=== PATIENT | male | born 1950 ===

== ENCOUNTER 2017-08-23 08:31 | Emergency (ER) | payer MEDICAID, MEDICARE ==
[2017-08-23 08:47] VITALS: BP 108/72; PULSE 80; RESP 18; TEMP 97.9; O2SAT 99
[2017-08-23] MEDS ORDERED: Sodium Chloride 0.9% 1,000 ML IV STA (09:08)
--- NOTE | 2017-08-23 09:12 | ED PDOC ---
HPI: Abdomen Time Seen by Provider: 08/23/17 09:04 Chief Complaint (Nursing): Abdominal Pain History Per: Patient Onset/Duration Of Symptoms: Days (5) Current Symptoms Are (Timing): Still Present Context: Food Severity: Mild Pain Scale Rating Of: 3 Location Of Pain/Discomfort: Epigastric Quality Of Discomfort: Sharp Associated Symptoms: denies: Fever, Nausea, Vomiting, Diarrhea Exacerbating Factors: None Alleviating Factors: None Additional Complaint(s): Epigastric abd pain x 5 days. Worse with food. No NVD. No fever. Past Medical History Vital Signs: Last Vital Signs Temp 97.9 F 08/23/17 08:44 Pulse 80 08/23/17 08:44 Resp 18 08/23/17 08:44 BP 108/72 08/23/17 08:44 Pulse Ox 99 08/23/17 09:12 - Medical History PMH: Diabetes, HTN, Hypercholesterolemia Denies: Chronic Kidney Disease - Family History Family History: States: Unknown Family Hx - Immunization History Hx Tetanus Toxoid Vaccination: No Hx Influenza Vaccination: Yes Hx Pneumococcal Vaccination: No - Home Medications Home Medications: Ambulatory Orders Medication Instructions Recorded Gemfibrozil 600 mg PO BID 08/02/14 SITagliptin [Januvia] 100 mg PO DAILY 08/02/14 Glimepiride [Amaryl] 4 mg PO BID 06/21/16 Lisinopril/Hydrochlorothiazide 1 tab PO DAILY 06/21/16 [Lisinopril-Hctz 20-25 mg Tab] Lovastatin 40 mg PO DAILY 06/21/16 Pantoprazole Sodium [Protonix] 40 mg PO DAILY 06/21/16 Ciprofloxacin HCl [Cipro] 500 mg PO BID #0 tablet 06/26/16 Lactobacillus Acidophilus [Bacid 1 cap PO BID #0 cap 06/26/16 Acidophilus] Metronidazole [Flagyl] 500 mg PO Q8 #0 tablet 06/26/16 Bismuth Subsalicylate [Pepto 1 - 2 tab PO Q4H PRN #50 ctb 07/15/16 Bismol] Loperamide [Imodium] 2 mg PO ONCE PRN #6 cap 07/19/16 Famotidine [Pepcid] 20 mg PO Q12 #20 tab 08/23/17 - Allergies Allergies/Adverse Reactions: Allergies Allergy/AdvReac Type Severity Reaction Status Date / Time No Known Allergies Allergy Verified 06/21/16 11:28 Review of Systems Constitutional: Negative for: Fever Gastrointestinal: Positive for: Abdominal Pain. Negative for: Nausea, Vomiting , Diarrhea Genitourinary Male: Negative for: Dysuria, Frequency Musculoskeletal: Negative for: Back Pain Physical Exam - Physical Exam Appears: Positive for: Non-toxic, No Acute Distress Gastrointestinal/Abdominal: Positive for: Bowel Sounds, Soft, Tenderness ( Epigastric) Back: Negative for: L CVA Tenderness, R CVA Tenderness Extremity: Positive for: Normal ROM Neurologic/Psych: Positive for: Alert, Oriented - Laboratory Results Result Diagrams: 08/23/17 09:25 08/23/17 09:25 - ECG O2 Sat by Pulse Oximetry: 99 Disposition - Clinical Impression Clinical Impression: Gastritis - Patient ED Disposition Is Patient to be Admitted: No Counseled Patient/Family Regarding: Studies Performed, Diagnosis, Need For Followup, Rx Given - Disposition Referrals: [facility] [Outside] Disposition: Routine/Home Disposition Time: 10:41 Condition: FAIR Prescriptions: Famotidine [Pepcid] 20 mg PO Q12 #20 tab Instructions: Gastritis (ED) Forms: [employer] (Bulgarian)
[2017-08-23 09:40] LABS: BASO # 0.1 K/uL (0.0-0.2); EOS # 0.3 K/uL (0.0-0.7); EOS % 4.1 % (0.0-4.0); HEMATOCRIT 43.8 % (35.0-51.0); LYMPH # 1.5 K/uL (1.0-4.3); MEAN CELL VOLUME 89.8 fl (80.0-94.0); MEAN CORPUSCULAR HGB CONC 34.6 g/dL (33.0-37.0); MEAN PLATELET VOLUME 9.4 fl (7.2-11.7); MONO # 0.5 K/uL (0.0-0.8); MONO % 7.3 % (0.0-10.0); NEUT % 63.6 % (50.0-75.0); NRBC % 0.1 % (0.0-0.0); RED CELL DISTRIBUTION WIDTH 13.2 % (11.5-14.5); WHITE BLOOD COUNT 6.2 K/uL (4.8-10.8)
[2017-08-23 09:48] LABS: ALB/GLOB RATIO 1.5 (1.0-2.1); ALKALINE PHOSPHATASE 64 U/L (38-126); ALT/SGPT 42 U/L (21-72); AST/SGOT 19 U/L (17-59); BILIRUBIN,TOTAL 0.7 mg/dl (0.2-1.3); BLOOD UREA NITROGEN 15 mg/dl (9-20); CALCIUM 9.1 mg/dL (8.4-10.2); CARBON DIOXIDE 27 mmol/L (22-30); CHLORIDE 101 mmol/L (98-107); GFR AFRICAN-AMERICAN > 60; GLUCOSE,RANDOM 169 mg/dL (75-110); LIPASE 188 U/L (23-300); POTASSIUM 4.2 MMOL/L (3.6-5.0); SODIUM 136 mmol/l (132-148); TOTAL PROTEIN 7.1 G/DL (6.3-8.2)
== END 2017-08-23 10:50 | disposition home or self-care (01) ==
LOC: H.ER 08:31
DX: K29.70 Gastritis, unspecified, without bleeding (principal); E11.9 Type 2 diabetes mellitus without complications; E78.00 Pure hypercholesterolemia, unspecified; I10 Essential (primary) hypertension
CPT/HCPCS: 80053; 83690; 85025; 96374; 99282; J7040

== ENCOUNTER 2018-01-14 10:08 | Emergency (ER) | payer MEDICARE, MEDICAID ==
[2018-01-14 10:19] VITALS: TEMP 97; O2SAT 98
--- NOTE | 2018-01-14 10:51 | ED PDOC ---
Upper Extremity Pain/Injury Time Seen by Provider: 01/14/18 10:36 Chief Complaint (Nursing): Upper Extremity Problem/Injury Chief Complaint (Provider): neck pain, shoulder pain History Per: Patient Additional Complaint(s): 67-year-old male presents with neck pain and bilateral shoulder pain for 2 weeks. He denies trauma or injury. Pain is worse with movement, better with rest. Patient took Tylenol last week which did not help. No other meds were taken for pain relief. Patient states pain does not radiate into her upper extremities past his shoulders. No associated chest pain, shortness of breath or dyspnea on exertion. PMD: Dr. Tiki Diego Past Medical History Reviewed: Historical Data, Nursing Documentation, Vital Signs Vital Signs: Last Vital Signs Temp 97 F L 01/14/18 10:17 Pulse 80 01/14/18 10:17 Resp 20 01/14/18 10:17 BP 121/80 01/14/18 10:17 Pulse Ox 98 01/14/18 10:17 - Medical History PMH: Diabetes, HTN, Hypercholesterolemia - Family History Family History: States: No Known Family Hx - Living Arrangements Living Arrangements: With Family - Social History Current smoker - smoking cessation education provided: No Alcohol: None Drugs: Denies - Home Medications Home Medications: Ambulatory Orders Medication Instructions Recorded Gemfibrozil 600 mg PO BID 08/02/14 SITagliptin [Januvia] 100 mg PO DAILY 08/02/14 Glimepiride [Amaryl] 4 mg PO BID 06/21/16 Lisinopril/Hydrochlorothiazide 1 tab PO DAILY 06/21/16 [Lisinopril-Hctz 20-25 mg Tab] Lovastatin 40 mg PO DAILY 06/21/16 Pantoprazole Sodium [Protonix] 40 mg PO DAILY 06/21/16 Ciprofloxacin HCl [Cipro] 500 mg PO BID #0 tablet 06/26/16 Lactobacillus Acidophilus [Bacid 1 cap PO BID #0 cap 06/26/16 Acidophilus] Metronidazole [Flagyl] 500 mg PO Q8 #0 tablet 06/26/16 Bismuth Subsalicylate [Pepto 1 - 2 tab PO Q4H PRN #50 ctb 07/15/16 Bismol] Loperamide [Imodium] 2 mg PO ONCE PRN #6 cap 07/19/16 Famotidine [Pepcid] 20 mg PO Q12 #20 tab 08/23/17 Cyclobenzaprine [Cyclobenzaprine 10 mg PO TID PRN #20 tab 01/14/18 HCl] Naproxen [Naprosyn] 500 mg PO BID #20 tab 01/14/18 traMADol [Ultram] 50 mg PO TID PRN #15 tab 01/14/18 - Allergies Allergies/Adverse Reactions: Allergies Allergy/AdvReac Type Severity Reaction Status Date / Time No Known Allergies Allergy Verified 06/21/16 11:28 Review of Systems ROS Statement: Except As Marked, All Systems Reviewed And Found Negative Constitutional: Negative for: Fever, Chills Eyes: Negative for: Vision Change Cardiovascular: Negative for: Chest Pain Respiratory: Negative for: Cough Gastrointestinal: Negative for: Nausea, Vomiting Musculoskeletal: Positive for: Neck Pain, Shoulder Pain (b/l), Other (denies fall or trauma) Neurological: Negative for: Weakness, Numbness, Headache, Dizziness Physical Exam - Reviewed Nursing Documentation Reviewed: Yes Vital Signs Reviewed: Yes - Physical Exam Appears: Positive for: Well, Non-toxic, No Acute Distress Skin: Negative for: Rash Eye Exam: Positive for: Normal appearance Neck: Positive for: Pain On Movement Of Neck (Diffuse tenderness to bilateral paraspinal regions along cervical spine, full range of motion noted with pain, no midline tenderness or step-off) Cardiovascular/Chest: Positive for: Regular Rate, Rhythm Respiratory: Positive for: Normal Breath Sounds Extremity: Positive for: Other (Tenderness to bilateral shoulders with full range of motion, 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 Negative for: Motor/Sensory Deficits, Aphasia, Facial Droop - ECG O2 Sat by Pulse Oximetry: 98 Pulse Ox Interpretation: Normal - Other Rad Cervical spine x-ray X-Ray: Interpreted by Me, Viewed By Me X-Ray Interpretation: no fx, no dis Right and Left shoulder x-rays X-Ray: Interpreted by Me, Viewed By Me X-Ray Interpretation: no fx, no dis; L - calficic tendinitis, R- degenerative changes Medical Decision Making Medical Decision Makin67 year old with neck pain and bilateral shoulder pain Plan: X-ray cervical spine, right and left shoulder IM toradol PO flexeril and tylenol Patient reports improvement pain after meds given in ED. He is aware of all diagnostic testing results, all questions answered. Prescriptions given for Naprosyn, Flexeril and tramadol. Patient was referred to orthopedist monitoring analyst for follow up. Disposition - Clinical Impression Clinical Impression: Neck pain, Calcific tendinitis - Patient ED Disposition Is Patient to be Admitted: No Counseled Patient/Family Regarding: Studies Performed, Diagnosis, Need For Followup, Rx Given - Disposition Referrals: Darleen Diego MD [Family Provider] - Chino Hoyos MD [Staff Provider] - Disposition: Routine/Home Disposition Time: 11:59 Condition: STABLE Additional Instructions: Rest affected area and avoid heavy lifting. Take prescription meds as directed as needed for pain. Follow-up with primary doctor or orthopedist for further evaluation. Prescriptions: Cyclobenzaprine [Cyclobenzaprine HCl] 10 mg PO TID PRN #20 tab PRN Reason: Muscle Spasm Naproxen [Naprosyn] 500 mg PO BID #20 tab traMADol [Ultram] 50 mg PO TID PRN #15 tab PRN Reason: Pain, Moderate (4-7) Instructions: Generalized Neck Pain, Calcific Tendonitis of the Shoulder (DC) Forms: [facility] ED School/Work Excuse Print Language: HEBREW
--- NOTE | 2018-01-14 11:49 | RAD ---
PROCEDURE: Radiographs of the Left Shoulder HISTORY: pain COMPARISON: No prior. FINDINGS: BONES: Normal. No fracture. JOINTS: Normal glenohumeral articulation. Calcific tendinitis. Mild acromioclavicular degenerative arthritis. SOFT TISSUES: Normal. OTHER FINDINGS: None. IMPRESSION: Calcific tendinitis. Mild acromioclavicular degenerative arthritis.
--- NOTE | 2018-01-14 11:49 | RAD ---
PROCEDURE: Radiographs of the Right Shoulder HISTORY: pain COMPARISON: No prior. FINDINGS: BONES: Normal. No fracture. JOINTS: Normal glenohumeral articulation. Mild acromioclavicular degenerative arthritis. Calcific tendinitis is noted. SOFT TISSUES: Normal. OTHER FINDINGS: None. IMPRESSION: Calcific tendinitis. Mild acromioclavicular degenerative arthritis.
--- NOTE | 2018-01-14 11:50 | RAD ---
PROCEDURE: Cervical Spine Radiographs. HISTORY: Pain. COMPARISON: None. FINDINGS: BONES: Alignment maintained. No fracture. Dens Intact. Evaluation of odontoid process and atlantoaxial articulation is limited. DISC SPACES: Normal. SOFT TISSUES: Normal. No prevertebral soft tissue swelling. OTHER FINDINGS: None. IMPRESSION: Normal limited examination.
[2018-01-14 12:07] VITALS: BP 120/70; PULSE 78; RESP 19
== END 2018-01-14 12:26 | disposition home or self-care (01) ==
LOC: H.ER 10:08
DX: M54.2 Cervicalgia (principal); M75.32 Calcific tendinitis of left shoulder; M75.31 Calcific tendinitis of right shoulder; E11.9 Type 2 diabetes mellitus without complications; E78.00 Pure hypercholesterolemia, unspecified; I10 Essential (primary) hypertension; M19.012 Primary osteoarthritis, left shoulder; Z79.84 Long term (current) use of oral hypoglycemic drugs
CPT/HCPCS: 72040; 73030; 96372; 99283; J1885

== ENCOUNTER 2018-03-29 05:29 | Emergency (ER) | payer MEDICARE, MEDICAID ==
[2018-03-29 05:51] VITALS: O2SAT 98
[2018-03-29] MEDS ORDERED: Sodium Chloride 0.9% 1,000 ML IV STA (05:53)
--- NOTE | 2018-03-29 06:03 | ED PDOC ---
HPI: CCC, URI, Sore Throat Time Seen by Provider: 03/29/18 05:45 Chief Complaint (Nursing): ENT Problem Chief Complaint (Provider): ENT Problem History Per: Patient History/Exam Limitations: no limitations Have you had recent travel within the past 21 days to any of the following countries: [place], [place], [place] or [place]?: Yes Other Location:: [place] Onset/Duration Of Symptoms: Days (X5) Current Symptoms Are (Timing): Still Present Location Of Pain: Ear(s) (RIGHT), Throat Additional Complaint(s): 67 y/o male with a PMHx of diabetes presents to the ED with complaints of a sore throat associated with right ear pain and difficulty swallowing, onset 5 days ago. Patient states pain begins in the throat and then radiates to the right ear. Patient reports of taking over the counter medications with no relief. Additionally, Patient reports he recently traveled to [place]. Denies fever. PMD: Dr. Darleen Diego Past Medical History Reviewed: Historical Data, Nursing Documentation, Vital Signs Vital Signs: Last Vital Signs Temp 97.9 F 03/29/18 05:48 Pulse 84 03/29/18 05:48 Resp 16 03/29/18 05:48 BP 110/76 03/29/18 05:48 Pulse Ox 98 03/29/18 06:07 - Medical History PMH: Diabetes, HTN, Hypercholesterolemia Denies: Chronic Kidney Disease - Surgical History Surgical History: No Surg Hx - Family History Family History: States: Unknown Family Hx - Social History Current smoker - smoking cessation education provided: No Alcohol: None Drugs: Denies - Immunization History Hx Tetanus Toxoid Vaccination: No Hx Influenza Vaccination: Yes Hx Pneumococcal Vaccination: No - Home Medications Home Medications: Ambulatory Orders Medication Instructions Recorded Gemfibrozil 600 mg PO BID 08/02/14 SITagliptin [Januvia] 100 mg PO DAILY 08/02/14 Glimepiride [Amaryl] 4 mg PO BID 06/21/16 Lisinopril/Hydrochlorothiazide 1 tab PO DAILY 06/21/16 [Lisinopril-Hctz 20-25 mg Tab] Lovastatin 40 mg PO DAILY 06/21/16 Pantoprazole Sodium [Protonix] 40 mg PO DAILY 06/21/16 Ciprofloxacin HCl [Cipro] 500 mg PO BID #0 tablet 06/26/16 Lactobacillus Acidophilus [Bacid 1 cap PO BID #0 cap 06/26/16 Acidophilus] Metronidazole [Flagyl] 500 mg PO Q8 #0 tablet 06/26/16 Bismuth Subsalicylate [Pepto 1 - 2 tab PO Q4H PRN #50 ctb 07/15/16 Bismol] Loperamide [Imodium] 2 mg PO ONCE PRN #6 cap 07/19/16 Famotidine [Pepcid] 20 mg PO Q12 #20 tab 08/23/17 Cyclobenzaprine [Cyclobenzaprine 10 mg PO TID PRN #20 tab 01/14/18 HCl] Naproxen [Naprosyn] 500 mg PO BID #20 tab 01/14/18 traMADol [Ultram] 50 mg PO TID PRN #15 tab 01/14/18 Amoxicillin/Clavulanate [Augmentin 1 tab PO BID #14 tab 03/29/18 875 MG-125 MG] - Allergies Allergies/Adverse Reactions: Allergies Allergy/AdvReac Type Severity Reaction Status Date / Time No Known Allergies Allergy Verified 06/21/16 11:28 Review of Systems ROS Statement: Except As Marked, All Systems Reviewed And Found Negative Constitutional: Negative for: Fever ENT: Positive for: Ear Pain (right), Throat Pain, Other (difficulty swallowing) Physical Exam - Reviewed Nursing Documentation Reviewed: Yes Vital Signs Reviewed: Yes - Physical Exam Appears: Positive for: No Acute Distress Head Exam: Positive for: ATRAUMATIC, NORMOCEPHALIC Skin: Positive for: Normal Color, Warm, Dry Eye Exam: Positive for: Normal appearance, EOMI, PERRL ENT: Positive for: Normal ENT Inspection, Pharyngeal Erythema. Negative for: Tonsillar Exudate Neck: Positive for: Normal, Painless ROM Cardiovascular/Chest: Positive for: Regular Rate, Rhythm. Negative for: Murmur Respiratory: Positive for: Normal Breath Sounds. Negative for: Respiratory Distress Gastrointestinal/Abdominal: Positive for: Normal Exam, Soft. Negative for: Tenderness Back: Positive for: Normal Inspection Extremity: Positive for: Normal ROM. Negative for: Pedal Edema, Deformity Neurologic/Psych: Positive for: Alert, Oriented. Negative for: Motor/Sensory Deficits - Laboratory Results Result Diagrams: 03/29/18 06:10 03/29/18 06:10 - ECG O2 Sat by Pulse Oximetry: 98 (RA) Pulse Ox Interpretation: Normal Medical Decision Making Medical Decision Making: Time: 05 Impression: 67 year old male with acute pharyngitis Plan: -- BMP -- CBC with differentials -- Sodium Chloride IV 1000 mls/hr -- SOLU-Medrol 125 mg IVP -- Toradol 15 mg IV -- Heplock Insertion -- Accucheck -- Sublette -- Influenza A B -- Rapid Strep Group A Antigen Time: 648 -- Labs reviewed and revealed no clinically significant abnormalities. -- Dx: Acute pharyngitis Scribe Attestation: Documented by Juve Matthews acting as a scribe for Dr. Johnson López MD. Provider Scribe Attestation: All medical record entries made by the Scribe were at my direction and personally dictated by me. I have reviewed the chart and agree that the record accurately reflects my personal performance of the history, physical exam, medical decision making, and the department course for this patient. I have also personally directed, reviewed, and agree with the discharge instructions and disposition. Disposition - Clinical Impression Clinical Impression: Pharyngitis - Patient ED Disposition Is Patient to be Admitted: No - Disposition Disposition: Routine/Home Disposition Time: 06:48 Condition: STABLE Prescriptions: Amoxicillin/Clavulanate [Augmentin 875 MG-125 MG] 1 tab PO BID #14 tab Instructions: Sore Throat in Adults Forms: [facility] (Wolof) Print Language: NIUEAN
[2018-03-29 06:21] LABS: BASO % 0.6 % (0.0-2.0); EOS # 0.2 K/uL (0.0-0.7); EOS % 2.9 % (0.0-4.0); HEMOGLOBIN 13.4 g/dL (12.0-18.0); LYMPH # 1.2 K/uL (1.0-4.3); LYMPH % 21.4 % (20.0-40.0); MEAN CELL VOLUME 89.5 fl (80.0-94.0); MEAN CORPUSCULAR HEMOGLOBIN 31.1 pg (27.0-31.0); MEAN CORPUSCULAR HGB CONC 34.7 g/dL (33.0-37.0); MEAN PLATELET VOLUME 9.3 fl (7.2-11.7); MONO # 0.8 K/uL (0.0-0.8); MONO % 13.2 % (0.0-10.0); NEUT # 3.6 K/uL (1.8-7.0); NEUT % 61.9 % (50.0-75.0); RBC 4.3 Mil/uL (4.40-5.90); RED CELL DISTRIBUTION WIDTH 12.8 % (11.5-14.5); WHITE BLOOD COUNT 5.8 K/uL (4.8-10.8)
[2018-03-29 06:30] LABS: CALCIUM 8.8 mg/dL (8.4-10.2); GFR AFRICAN-AMERICAN > 60; GFR NON-AFRICAN AMERICAN > 60
[2018-03-29 06:31] LABS: BLOOD UREA NITROGEN 15 mg/dl (9-20)
[2018-03-29 08:35] VITALS: BP 117/68; PULSE 79; RESP 19; TEMP 98
== END 2018-03-29 08:35 | disposition home or self-care (01) ==
LOC: H.ER 05:29
DX: J02.9 Acute pharyngitis, unspecified (principal); E11.9 Type 2 diabetes mellitus without complications; E78.00 Pure hypercholesterolemia, unspecified; I10 Essential (primary) hypertension; R13.10 Dysphagia, unspecified; Z79.84 Long term (current) use of oral hypoglycemic drugs
CPT/HCPCS: 80048; 85025; 86308; 87070; 87430; 87804; 96361; 96374; 96375; 99283; J1885; J2930; J7030